=== PATIENT | female | born 1955 | race American Indian/Alaskan Native ===

== ENCOUNTER 2018-12-21 09:27 | Inpatient (IN) | payer OTHER ==
[2018-12-21] MEDS ORDERED: MIDAZOLAM 2 MG/2 ML INJ IV NR (10:54)
--- NOTE | 2018-12-21 10:57 | Anesthesia Day of Surgery ---
Anesthesia Day of Surgery - Day of Surgery Patient Examined: Yes Patient H&P Reviewed: Yes Patient is NPO: Yes
--- NOTE | 2018-12-21 10:57 | Anesthesia Consultation ---
Anesthesia Consult and Med Hx Date of service: 12/21/18 - Airway Anesthetic Teeth Evaluation: Good ROM Head & Neck: Adequate Mental/Hyoid Distance: Adequate Mallampati Class: Class II Intubation Access Assessment: Probably Good - Pulmonary Exam CTA: Yes (distant breath sounds) - Cardiac Exam Cardiac Exam: RRR - Pre-Operative Health Status ASA Pre-Surgery Classification: ASA3 Proposed Anesthetic Plan: General - Pulmonary Hx Smoking: Yes (quit 6 months ago) COPD: Yes (used albuterol neb this morning) Home Oxygen Therapy: No Hx Sleep Apnea: No (JAZZMINE PRE SCREEN LOW RISK.) - Cardiovascular System Hx Hypertension: No Hx Heart Attack/AMI: No Hx Percutaneous Transluminal Coronary Angioplasty (PTCA): No - Central Nervous System Hx Seizures: No CVA: No Hx Back Pain: Yes (FROM STONE) Hx Psychiatric Problems: Yes (anxiety and depression) - Gastrointestinal Hx Gastroesophageal Reflux Disease: No - Endocrine Hx Renal Disease: No Hx Liver Disease: No Hx Non-Insulin Dependent Diabetes: Yes Hx Thyroid Disease: No - Other Systems Hx Obesity: No - Additional Comments Anesthesia Medical History Comments: No hx anesthetic complications.
[2018-12-21] MEDS ORDERED: fentaNYL 100 MCG/2 ML INJ IV PRN (10:58)
[2018-12-21] MEDS ORDERED: ceFAZolin/STERILE WATER 2 GM/20 ML SYRINGE IV NR (11:00)
[2018-12-21] MEDS: LACTATED RINGERS 1,000 ML IV SCH (11:14)
[2018-12-21] MEDS ORDERED: PROPOFOL 200 MG/20 ML VIAL IV ONE (11:39)
[2018-12-21] MEDS ORDERED: fentaNYL 100 MCG/2 ML INJ ONE (11:39)
[2018-12-21] MEDS ORDERED: WATER FOR IRRIG STERILE 2000 ML IR ONE (12:11)
[2018-12-21] MEDS ORDERED: IOHEXOL 300 MG/ML 50ML IV ONE (12:15)
--- NOTE | 2018-12-21 12:40 | Post Operative Note ---
Date of procedure: 12/21/18 Pre-op diagnosis: r ureteral stone Post-op diagnosis: same Findings: large stone Procedure: cysto ureteroscopy laser Anesthesia: ERON Surgeon: VLAD QURESHI Estimated blood loss: none Pathology: none Condition: stable Disposition: PACU
--- NOTE | 2018-12-21 12:41 | Discharge Summary ---
Short Stay Discharge Plan Activity: other (no straining ) Weight Bearing Status: Full Weight Bearing Diet: low salt Special Instructions: other (inc fluids ) Follow up with: SONIA LUNA,PRACTICE [Other] - 7 Days VLAD QURESHI MD [Staff Physician] - 7 Days
[2018-12-21] MEDS ORDERED: LIDOCAINE MPF (2%) 20 MG/1 ML VIAL 5 ML ONE (12:57)
[2018-12-21] MEDS ORDERED: PHENYLEPHRINE/NS 1,000 MCG/10 ML SYRINGE (OR USE) IV ONE (13:00)
[2018-12-21] MEDS ORDERED: dexAMETHasone 20 MG/5 ML VIAL ONE (13:00)
[2018-12-21] MEDS ORDERED: ONDANSETRON 4 MG/2 ML INJ ONE (13:00)
--- NOTE | 2018-12-21 13:12 | Operative Report ---
PREOPERATIVE DIAGNOSIS: Large right distal ureteral stone. POSTOPERATIVE DIAGNOSIS: Large right distal ureteral stone. PROCEDURE: Cystoscopy, right retrograde, right ureteral balloon dilatation, ureteroscopy, laser of large stone, J stent. SURGEON: Juno Rubalcava MD ANESTHESIA: General. FINDINGS: This is a woman with a large ureteral stone and hydronephrosis. She now presents for treatment. DESCRIPTION OF PROCEDURE: The patient was brought to the operating room and placed on the operating table. Following induction of anesthesia, she was placed in lithotomy position, prepped and draped in usual sterile fashion. Cystourethroscopy showed no bladder lesions. Retrograde showed hydronephrosis, right side with a distal stone. A wire coiled in the kidney. Balloon dilatation was carried out. A large stone was seen and lasered into at least 15 pieces. Most of it washed out. The patient tolerated the procedure well. A 7-Telugu double-J coiled in the kidney and bladder that will be removed in 7-10 days. She tolerated the procedure well and brought to recovery in stable condition. JOB# [id number] KENIA/ABIMAEL
[2018-12-21] MEDS ORDERED: ALBUTEROL 2.5 MG/3 ML NEBU IH ONE ×2 (13:30)
--- NOTE | 2018-12-21 14:36 | Fluoroscopy Report ---
Single fluoroscopic image submitted Indication: Intraoperative localization Impression: A single image of the abdomen was submitted for documentation purposes with radiology in volvement. Fluoroscopy provided for reported right-sided ureteral balloon dilatation. A total of 24 mL of Omnipaque 300 was utilized for this exam. Fluoroscopic time: 2 minutes and 4 seconds Number of fluoroscopic images: 1 Signer Name: Job Wiley MD Signed: 12/21/2018 2:31 PM Workstation Name: [id number]
--- NOTE | 2018-12-21 15:24 | Fluoroscopy Report ---
8 fluoroscopic images submitted Indication: Intraoperative localization Impression: 8 images of the abdomen were submitted for documentation purposes with radiology involve ment. Bilateral retrograde pyelography performed, with right-sided double-J ureteral stent placement . Please refer to the operative note for complete details. A total of 24 mL of Omnipaque 300 was util ized for this exam. Fluoroscopic time: 2.1 minutes Signer Name: Job Wiley MD Signed: 12/21/2018 3:19 PM Workstation Name: [id number]
--- NOTE | 2018-12-21 16:43 | History and Physical Report ---
History of Present Illness Date of examination: 12/21/18 Date of admission: 12/21/2018 Chief complaint: Respiratory distress after postop procedure Hypoxia after postop History of present illness: 63-year-old female with nicotine dependence, COPD hyperlipidemia type 2 diabetes was evaluated. For persistent hypoxia. Patient had cystoscopy uretroscopy and bilateral RPG and stone lasered on the right ureter. Patient had couple of nebulizer treatments but did not improve and continued to be hypoxic. Patient continues to smoke a pack a day. No fever or chills. Wheezing present. No recent travel. Past History Past Medical History: COPD, diabetes, hyperlipidemia, other (depression and generalized anxiety disorder) Past Surgical History: Other (cystouretroscopy and stone removal) Medications and Allergies Allergies Allergy/AdvReac Type Severity Reaction Status Date / Time No Known Allergies Allergy Unverified 12/13/18 09:24 Home Medications Medication Instructions Recorded Confirmed Last Taken Type ALBUTEROL NEB's [Proventil] 2.5 mg IH TID PRN 12/20/18 12/20/18 12/21/18 07:30 History Albuterol Sulfate [Proventil Hfa] 2 puff IH PRN PRN 12/20/18 12/20/18 12/21/18 07:30 History Citalopram [celeXA] 20 mg PO QDAY 12/20/18 12/20/18 12/21/18 07:30 History Fluticasone/Salmeterol [Advair 1 puff IH DAILY 12/20/18 12/20/18 12/21/18 07:30 History Diskus 250-50 mcg] Magnesium 500 mg PO DAILY 12/20/18 12/20/18 12/21/18 07:30 History Metformin HCl [metFORMIN] 1,000 mg PO BID 12/20/18 12/20/18 12/20/18 History Multivit-Min/FA/Lycopen/Lutein 1 each PO DAILY 12/20/18 12/20/18 12/21/18 07:30 History [Centrum Silver Tablet] Simvastatin 20 mg PO DAILY 12/20/18 12/20/18 12/21/18 07:30 History clonazePAM [ Klonopin] 0.5 mg PO QHS 12/20/18 12/20/18 12/20/18 History Active Meds: Active Medications Fentanyl (Sublimaze) 50 mcg IV Q5MIN PRN PRN Reason: Pain , Severe (7-10) Stop: 12/21/18 20:00 Lactated Ringer's (Lactated Ringers) 1,000 mls @ 100 mls/hr IV DIRECT [facility] Last Admin: 12/21/18 11:14 Dose: 100 mls/hr Documented by: Review of Systems All systems: negative Constitutional: no weight loss, no weight gain, no fever, no chills Ears, nose, mouth and throat: no ear pain, no ear discharge Cardiovascular: shortness of breath, dyspnea on exertion, no chest pain, no orthopnea, no palpitations, no rapid/irregular heart beat, no edema, no syncope Respiratory: cough, shortness of breath, dyspnea on exertion, wheezing Gastrointestinal: no abdominal pain, no nausea, no vomiting, no diarrhea, no constipation Menstruation: ammenorrhea Rectal: no pain Musculoskeletal: no neck stiffness, no neck pain, no shooting arm pain, no arm numbness/tingling Integumentary: no rash, no pruritis, no redness, no sores Neurological: no head injury, no transient paralysis, no paralysis, no weakness, no parathesias, no numbness Psychiatric: no anxiety, no memory loss, no change in sleep habits Endocrine: no cold intolerance, no heat intolerance, no polyphagia, no excessive thirst Hematologic/Lymphatic: no easy bruising, no easy bleeding Allergic/Immunologic: no urticaria, no allergic rhinitis, no wheezing Exam - Constitutional Vitals: Temp Pulse Resp BP Pulse Ox 97.6 F 91 H 16 105/51 87 12/21/18 15:55 12/21/18 16:25 12/21/18 16:25 12/21/18 16:25 12/21/18 16:25 General appearance: Present: mild distress, well-nourished - EENT Eyes: Present: PERRL ENT: hearing intact, clear oral mucosa - Neck Neck: Present: supple, normal ROM - Respiratory Respiratory effort: normal Respiratory: bilateral: diminished, rhonchi, wheezing - Cardiovascular Heart rate: 88 Rhythm: regular Heart Sounds: Present: S1 & S2. Absent: rub, click - Extremities Extremities: no ischemia, pulses intact, pulses symmetrical, No edema Peripheral Pulses: within normal limits - Abdominal General gastrointestinal: Present: soft, non-tender, non-distended, normal bowel sounds Female genitourinary: Present: normal - Rectal Rectal Exam: deferred - Integumentary Integumentary: Present: clear, warm, dry - Musculoskeletal Musculoskeletal: gait normal, strength equal bilaterally - Psychiatric Psychiatric: appropriate mood/affect, intact judgment & insight - Neurologic Neurologic: CNII-XII intact, moves all extremities - Allied Health Allied health notes reviewed: nursing, case management Results - Labs Labs: Laboratory Last Values POC ABG pH 7.287 (7.35-7.45) L 12/21/18 15:34 POC ABG pO2 109 (80-105) H 12/21/18 15:34 POC ABG HCO3 34.6 (22-26 mml/L) 12/21/18 15:34 POC ABG Total CO2 37 (23-27mmol/L) 12/21/18 15:34 POC ABG O2 Sat 97 12/21/18 15:34 POC ABG Base Excess 8 ((-2) - (+3)mmol/L) 12/21/18 15:34 32 % 12/21/18 15:34 POC Glucose 170 (70-105) H 12/21/18 15:30 Assessment and Plan Advance Directives: Yes (full code) VTE prophylaxis?: Chemical Plan of care discussed with patient/family: Yes - Patient Problems (1) Acute respiratory failure with hypoxia and hypercarbia Current Visit: Yes Status: Acute Plan to address problem: Patient is a pCO2 of 72 and hypoxia Patient initiated on IV Solu-Medrol and IV Levaquin and nebulizer treatments [id number] and when necessary BiPAP when necessary Intubation if necessary (2) Status post cystoscopy with ureteral stent placement Current Visit: Yes Status: Acute Plan to address problem: Urology consultation (3) COPD exacerbation Current Visit: Yes Status: Acute Plan to address problem: Postop precipitating COPD exacerbation (4) T2DM (type 2 diabetes mellitus) Current Visit: Yes Status: Chronic Qualifiers: Diabetes mellitus halfway insulin use: without halfway use Plan to address problem: We will hold her metformin Accu-Cheks before meals and at bedtime Moderate dose sliding scale coverage with Humalog (5) Hyperlipidemia Current Visit: Yes Status: Chronic Qualifiers: Hyperlipidemia type: mixed hyperlipidemia Qualified Code(s): E78.2 - Mixed hyperlipidemia Plan to address problem: Continue statins (6) Depression Current Visit: Yes Status: Chronic Qualifiers: Depression Type: unspecified Qualified Code(s): F32.9 - Major depressive disorder, single episode, unspecified Plan to address problem: Continue citalopram (7) Nicotine dependence Current Visit: Yes Status: Chronic Qualifiers: Nicotine product type: cigarettes Plan to address problem: Smoking cessation consult Initiated on NicoDerm patch (8) DVT prophylaxis Current Visit: Yes Status: Acute Plan to address problem: On SCDs and GI prophylaxis
[2018-12-21] MEDS ORDERED: ONDANSETRON 4 MG/2 ML INJ IV PRN (16:44)
[2018-12-21] MEDS ORDERED: ACETAMINOPHEN 325 MG TAB PO PRN (16:44)
[2018-12-21] MEDS ORDERED: oxyCODONE /ACETAMINOPHEN 5-325MG TAB PO PRN (16:45)
[2018-12-21] MEDS ORDERED: METOCLOPRAMIDE 10 MG/2 ML INJ IV PRN (16:45)
[2018-12-21] MEDS ORDERED: ALBUTEROL 2.5 MG/3 ML NEBU IH PRN (16:47)
[2018-12-21] MEDS ORDERED: MAGNESIUM 500 MG PO SCH (17:00)
[2018-12-21] MEDS ORDERED: CITALOPRAM 20 MG TAB PO SCH (17:00)
[2018-12-21] MEDS ORDERED: NON-FORMULARY EACH (Fluticasone/Salmeterol [Advair Diskus 250-50 Mcg] 1 PUFF) IH SCH (17:00)
[2018-12-21] MEDS ORDERED: SODIUM CHLORIDE 0.9% 1000 ML 1,000 ML IV SCH (17:00)
[2018-12-21] MEDS: methylPREDNISolone Sod Succinate 125 MG/2 ML INJ IV SCH ×2 (17:14→22:17)
[2018-12-21 17:30] LABS: Hematocrit 34.9 % (30.3-42.9); Hemoglobin 10.6 gm/dl (10.1-14.3); Mean Corpuscular HGB Conc 31 % (30-34); Mean Corpuscular Volume 76 fl (79-97); Platelet Count 287 K/mm3 (140-440); Red Cell Distribution Width 16.3 % (13.2-15.2)
--- NOTE | 2018-12-21 17:46 | Post Anesthesia Evaluation ---
- Post Anesthesia Evaluation Patient Participated: Yes Airway Patent: Yes Stable Respiratory Function: Yes (Patient has COPD , Sat 88-94% will monitor overnight inpt) Nausea/Vomiting: No Temp > 96.8F: Yes Pain Manageable: Yes Adequeate Hydration: Yes Anesthesia Complications: No Block Receding Appropriately: Not Applicable Patient on Ventilator: No
[2018-12-21 17:57] LABS: Alanine Aminotransferase 19 units/L (7-56); Albumin 4.1 g/dL (3.9-5); BUN/Creatinine Ratio 22; Blood Urea Nitrogen 13 mg/dL (7-17); Calcium 9.1 mg/dL (8.4-10.2); Hemolysis Index 0
[2018-12-21 18:24] LABS: Basophils % (Manual) 0 % (0.0-1.8); Eosinophils % (Manual) 0 % (0.0-4.3); Hypochromasia 1+; Total Cells Counted 100
[2018-12-21] MEDS: BUDESONIDE 0.5 MG/2 ML NEBU IH SCH (20:02)
[2018-12-21] MEDS: ARFORMOTEROL 15 MCG/2 ML NEBU IH SCH (20:02)
[2018-12-21] MEDS: IPRATROPIUM/ALBUTEROL SULFATE 3 ML AMPUL.NEB IH SCH (20:03)
[2018-12-21] MEDS: FAMOTIDINE 20 MG TAB PO SCH (21:23)
[2018-12-21] MEDS: HEPARIN 5,000 UNIT/1 ML VIAL SUB-Q SCH (21:24)
[2018-12-21] MEDS ORDERED: clonazePAM 0.5 MG TAB PO SCH (22:00)
--- NOTE | 2018-12-21 22:03 | Event Note ---
Date: 12/21/18 Discussed with [employer] earlier ABG with uncompensated respiratory acidosis but patient hemodynamically stable and with encephalopathy / delirium - BIPAP qhs - will see in am
[2018-12-21] MEDS: HYDROmorphone 1 MG/1 ML INJ IV PRN (23:59)
[2018-12-22] MEDS: methylPREDNISolone Sod Succinate 125 MG/2 ML INJ IV SCH ×2 (05:26→13:24)
[2018-12-22 06:32] LABS: Hematocrit 33.7 % (30.3-42.9); Hemoglobin 10.3 gm/dl (10.1-14.3); Mean Corpuscular HGB Conc 31 % (30-34); Mean Corpuscular Volume 77 fl (79-97); Platelet Count 283 K/mm3 (140-440); Red Blood Count 4.38 M/mm3 (3.65-5.03); Red Cell Distribution Width 16.3 % (13.2-15.2)
[2018-12-22 06:45] LABS: BUN/Creatinine Ratio 35; Blood Urea Nitrogen 14 mg/dL (7-17); Calcium 8.7 mg/dL (8.4-10.2); Hemolysis Index 2
[2018-12-22] MEDS: IPRATROPIUM/ALBUTEROL SULFATE 3 ML AMPUL.NEB IH SCH ×2 (08:31→13:03)
[2018-12-22] MEDS: ARFORMOTEROL 15 MCG/2 ML NEBU IH SCH (08:31)
[2018-12-22] MEDS: BUDESONIDE 0.5 MG/2 ML NEBU IH SCH (08:32)
[2018-12-22] MEDS: HYDROmorphone 1 MG/1 ML INJ IV PRN ×2 (08:58→13:28)
[2018-12-22] MEDS: INSULIN LISPRO 100 UNIT/ML SUB-Q SCH ×3 (08:58→16:46)
[2018-12-22] MEDS: FAMOTIDINE 20 MG TAB PO SCH (08:59)
[2018-12-22] MEDS: HEPARIN 5,000 UNIT/1 ML VIAL SUB-Q SCH (08:59)
[2018-12-22 10:50] LABS: Basophils % (Manual) 0 % (0.0-1.8); Eosinophils % (Manual) 0 % (0.0-4.3); Total Cells Counted 100
[2018-12-22 10:57] LABS: Hypochromasia 2+
[2018-12-22 11:01] LABS: Anisocytosis Few
[2018-12-22 11:02] LABS: Ovalocytes Rare; Platelet Estimate Consistent w Auto
[2018-12-22] MEDS ORDERED: PNEUMOCOCCAL 23 Valent 0.5 ML VIAL IM ONE (12:00)
--- NOTE | 2018-12-22 12:01 | Consultation ---
History of Present Illness Consult date: 12/22/18 Requesting physician: VLAD QURESHI Reason for consult: COPD History of present illness: PULMONARY/CCM CONSULT NOTE (Full dictation # [id number]) Please see dictated notes for full details Past History Past Medical History: COPD, diabetes, hyperlipidemia, other (depression and generalized anxiety disorder) Past Surgical History: Other (cystouretroscopy and stone removal) Medications and Allergies Allergies Allergy/AdvReac Type Severity Reaction Status Date / Time No Known Allergies Allergy Unverified 12/13/18 09:24 Home Medications Medication Instructions Recorded Confirmed Last Taken Type ALBUTEROL NEB's [Proventil] 2.5 mg IH TID PRN 12/20/18 12/20/18 12/21/18 07:30 History Albuterol Sulfate [Proventil Hfa] 2 puff IH PRN PRN 12/20/18 12/20/18 12/21/18 07:30 History Citalopram [celeXA] 20 mg PO QDAY 12/20/18 12/20/18 12/21/18 07:30 History Fluticasone/Salmeterol [Advair 1 puff IH DAILY 12/20/18 12/20/18 12/21/18 07:30 History Diskus 250-50 mcg] Magnesium 500 mg PO DAILY 12/20/18 12/20/18 12/21/18 07:30 History Metformin HCl [metFORMIN] 1,000 mg PO BID 12/20/18 12/20/18 12/20/18 History Multivit-Min/FA/Lycopen/Lutein 1 each PO DAILY 12/20/18 12/20/18 12/21/18 07:30 History [Centrum Silver Tablet] Simvastatin 20 mg PO DAILY 12/20/18 12/20/18 12/21/18 07:30 History clonazePAM [ Klonopin] 0.5 mg PO QHS 12/20/18 12/20/18 12/20/18 History Active Meds: Active Medications Acetaminophen (Tylenol) 650 mg PO Q4H PRN PRN Reason: Pain MILD(1-3)/Fever >100.5/JIANG Last Admin: 12/22/18 05:26 Dose: 650 mg Documented by: Albuterol (Proventil) 2.5 mg IH Q4HRT PRN PRN Reason: Shortness Of Breath Albuterol/Ipratropium (Duoneb *Not For Prn Use*) 1 ampul IH QIDRT [facility] Last Admin: 12/22/18 08:31 Dose: 1 ampul Documented by: Arformoterol Tartrate (Brovana Nebu) 15 mcg IH Q12HRT [facility] Last Admin: 12/22/18 08:31 Dose: 15 mcg Documented by: Budesonide (Pulmicort) 0.5 mg IH Q12HRT [facility] Last Admin: 12/22/18 08:32 Dose: 0.5 mg Documented by: Citalopram Hydrobromide (Celexa) 20 mg PO QDAY [facility] Last Admin: 12/22/18 08:59 Dose: 20 mg Documented by: Clonazepam (Klonopin) 0.5 mg PO QHS [facility] Last Admin: 12/21/18 21:24 Dose: 0.5 mg Documented by: Famotidine (Pepcid) 20 mg PO BID [facility] Last Admin: 12/22/18 08:59 Dose: 20 mg Documented by: Heparin Sodium (Porcine) (Heparin) 5,000 unit SUB-Q Q12HR [facility] Last Admin: 12/22/18 08:59 Dose: 5,000 unit Documented by: Hydromorphone HCl (Dilaudid) 0.5 mg IV Q3H PRN PRN Reason: Pain , Severe (7-10) Last Admin: 12/22/18 08:58 Dose: 0.5 mg Documented by: Lactated Ringer's (Lactated Ringers) 1,000 mls @ 100 mls/hr IV DIRECT [facility] Last Admin: 12/21/18 11:14 Dose: 100 mls/hr Documented by: Levofloxacin/Dextrose (Levaquin 750mg/150ml) 750 mg in 150 mls @ 100 mls/hr IV Q24HR [facility]; Protocol Last Admin: 12/22/18 08:59 Dose: 100 mls/hr Documented by: Insulin Human Lispro (Humalog) 0 unit SUB-Q ACHS [facility]; Protocol Last Admin: 12/22/18 08:58 Dose: 3 unit Documented by: Methylprednisolone Sodium Succinate (Solu-Medrol) 60 mg IV Q8HR [facility] Last Admin: 12/22/18 05:26 Dose: 60 mg Documented by: Metoclopramide HCl (Reglan) 10 mg IV Q6H PRN PRN Reason: Nausea And Vomiting Miscellaneous Medication (Magnesium [Magnesium]) 500 mg PO DAILY [facility] Ondansetron HCl (Zofran) 4 mg IV Q8H PRN PRN Reason: Nausea And Vomiting Oxycodone/Acetaminophen (Percocet 5/325) 1 tab PO Q6H PRN PRN Reason: Pain, Moderate (4-6) Pneumococcal Polyvalent Vaccine (Pneumovax 23) 0.5 ml IM .ONCE ONE Stop: 12/22/18 12:01 Sodium Chloride (Sodium Chloride Flush Syringe 10 Ml) 10 ml IV BID [facility] Last Admin: 12/22/18 09:00 Dose: 10 ml Documented by: Sodium Chloride (Sodium Chloride Flush Syringe 10 Ml) 10 ml IV PRN PRN PRN Reason: LINE FLUSH Physical Examination Vital signs: Vital Signs Temp Pulse Resp BP Pulse Ox 98.5 F 94 H 22 119/64 95 12/21/18 09:50 12/21/18 09:50 12/21/18 09:50 12/21/18 09:50 12/21/18 09:50 Results - Laboratory Findings CBC and BMP: 12/22/18 05:15 12/22/18 05:15 ABG POC ABG pH 7.287 (7.35-7.45) L 12/21/18 15:34 POC ABG pO2 109 (80-105) H 12/21/18 15:34 POC ABG HCO3 34.6 (22-26 mml/L) 12/21/18 15:34 POC ABG Total CO2 37 (23-27mmol/L) 12/21/18 15:34 POC ABG O2 Sat 97 12/21/18 15:34 Abnormal lab findings: Abnormal Labs 12/21/18 12/21/18 12/21/18 10:24 13:15 15:30 MCV MCH RDW Seg Neuts % (Manual) Lymphocytes % (Manual) Lymphocytes # (Manual) POC ABG pH POC ABG pO2 Sodium Chloride Carbon Dioxide Creatinine Glucose POC Glucose 170 H 137 H 170 H Hemoglobin A1c 12/21/18 12/21/18 12/21/18 15:34 17:19 17:19 MCV 76 L MCH 23 L RDW 16.3 H Seg Neuts % (Manual) 93.0 H Lymphocytes % (Manual) 6.0 L Lymphocytes # (Manual) 0.4 L POC ABG pH 7.287 L POC ABG pO2 109 H Sodium 136 L Chloride 95.9 L Carbon Dioxide 33 H Creatinine 0.6 L Glucose 253 H POC Glucose Hemoglobin A1c 12/21/18 12/21/18 12/22/18 17:19 21:18 05:15 MCV 77 L MCH 24 L RDW 16.3 H Seg Neuts % (Manual) 92.0 H Lymphocytes % (Manual) 7.0 L Lymphocytes # (Manual) 0.5 L POC ABG pH POC ABG pO2 Sodium Chloride Carbon Dioxide Creatinine Glucose POC Glucose 272 H Hemoglobin A1c 7.0 H 12/22/18 12/22/18 12/22/18 05:15 07:22 11:18 MCV MCH RDW Seg Neuts % (Manual) Lymphocytes % (Manual) Lymphocytes # (Manual) POC ABG pH POC ABG pO2 Sodium Chloride Carbon Dioxide 32 H Creatinine 0.4 L Glucose 201 H POC Glucose 227 H 276 H Hemoglobin A1c
--- NOTE | 2018-12-22 12:40 | XRay Report ---
CHEST 1 VIEW INDICATION: acute hypoxemia; COPD. COMPARISON: None. FINDINGS: Support devices: None. Heart: Within normal limits. Pulmonary vasculature: Normal. Lungs/Pleura: Moderate emphysema. Bilateral apical scarring with superior retraction of the ba. Additional findings: None. IMPRESSION: 1. No CHF or pneumonia. Signer Name: Hao Huston MD Signed: 12/22/2018 12:35 PM Workstation Name: [id number]
[2018-12-22] MEDS: LACTATED RINGERS 1,000 ML IV SCH (13:28)
--- NOTE | 2018-12-22 14:20 | Progress Note ---
Assessment and Plan (1) Acute respiratory failure with hypoxia and hypercarbia Current Visit: Yes Status: Acute Plan to address problem: Patient is a pCO2 of 72 and hypoxia Patient initiated on IV Solu-Medrol and IV Levaquin and nebulizer treatments [id number] and when necessary BiPAP when necessary Intubation if necessary (2) Status post cystoscopy with ureteral stent placement Current Visit: Yes Status: Acute Plan to address problem: Urology consultation (3) COPD exacerbation Current Visit: Yes Status: Acute Plan to address problem: Postop precipitating COPD exacerbation (4) T2DM (type 2 diabetes mellitus) Current Visit: Yes Status: Chronic Qualifiers: Diabetes mellitus salvage determiner insulin use: without senior care use Plan to address problem: We will hold her metformin Accu-Cheks before meals and at bedtime Moderate dose sliding scale coverage with Humalog (5) Hyperlipidemia Current Visit: Yes Status: Chronic Qualifiers: Hyperlipidemia type: mixed hyperlipidemia Qualified Code(s): E78.2 - Mixed hyperlipidemia Plan to address problem: Continue statins (6) Depression Current Visit: Yes Status: Chronic Qualifiers: Depression Type: unspecified Qualified Code(s): F32.9 - Major depressive disorder, single episode, unspecified Plan to address problem: Continue citalopram (7) Nicotine dependence Current Visit: Yes Status: Chronic Qualifiers: Nicotine product type: cigarettes Plan to address problem: Smoking cessation consult Initiated on NicoDerm patch (8) DVT prophylaxis Current Visit: Yes Status: Acute Plan to address problem: On SCDs and GI prophylaxis Subjective Date of service: 12/22/18 Objective - Constitutional Vitals: Vital Signs - 12hr 12/22/18 12/22/18 12/22/18 03:53 04:52 07:02 Temperature 97.6 F 97.9 F Pulse Rate 78 90 77 Pulse Rate [ Anterior Bilateral Throughout] Pulse Rate [ Anterior Bilateral Upper Lobe] Respiratory 22 20 22 Rate Respiratory Rate [Anterior Bilateral Throughout] Respiratory Rate [Anterior Bilateral Upper Lobe] Blood Pressure 100/31 97/40 Blood Pressure 141/86 [Right] O2 Sat by Pulse 99 98 98 Oximetry 12/22/18 12/22/18 12/22/18 08:21 08:30 08:50 Temperature 97.7 F Pulse Rate 88 Pulse Rate [ 86 Anterior Bilateral Throughout] Pulse Rate [ 90 Anterior Bilateral Upper Lobe] Respiratory 20 Rate Respiratory 20 Rate [Anterior Bilateral Throughout] Respiratory 20 Rate [Anterior Bilateral Upper Lobe] Blood Pressure 116/40 Blood Pressure [Right] O2 Sat by Pulse 85 94 Oximetry 12/22/18 11:36 Temperature 98.1 F Pulse Rate 82 Pulse Rate [ Anterior Bilateral Throughout] Pulse Rate [ Anterior Bilateral Upper Lobe] Respiratory 20 Rate Respiratory Rate [Anterior Bilateral Throughout] Respiratory Rate [Anterior Bilateral Upper Lobe] Blood Pressure Blood Pressure 101/81 [Right] O2 Sat by Pulse 96 Oximetry - Labs CBC & Chem 7: 12/22/18 05:15 12/22/18 05:15 Labs: Abnormal lab results 12/21/18 12/21/18 12/21/18 Range/Units 15:30 15:34 17:19 MCV 76 L (79-97) fl MCH 23 L (28-32) pg RDW 16.3 H (13.2-15.2) % Seg Neuts % (Manual) 93.0 H (40.0-70.0) % Lymphocytes % (Manual) 6.0 L (13.4-35.0) % Lymphocytes # (Manual) 0.4 L (1.2-5.4) K/mm3 POC ABG pH 7.287 L (7.35-7.45) POC ABG pCO2 (35-45) POC ABG pO2 109 H (80-105) Sodium (137-145) mmol/L Chloride (98-107) mmol/L Carbon Dioxide (22-30) mmol/L Creatinine (0.7-1.2) mg/dL Glucose (65-100) mg/dL POC Glucose 170 H (70-105) Hemoglobin A1c (4-6) % Lactic Acid (0.7-2.0) mmol/L 12/21/18 12/21/18 12/21/18 Range/Units 17:19 17:19 21:18 MCV (79-97) fl MCH (28-32) pg RDW (13.2-15.2) % Seg Neuts % (Manual) (40.0-70.0) % Lymphocytes % (Manual) (13.4-35.0) % Lymphocytes # (Manual) (1.2-5.4) K/mm3 POC ABG pH (7.35-7.45) POC ABG pCO2 (35-45) POC ABG pO2 (80-105) Sodium 136 L (137-145) mmol/L Chloride 95.9 L (98-107) mmol/L Carbon Dioxide 33 H (22-30) mmol/L Creatinine 0.6 L (0.7-1.2) mg/dL Glucose 253 H (65-100) mg/dL POC Glucose 272 H (70-105) Hemoglobin A1c 7.0 H (4-6) % Lactic Acid (0.7-2.0) mmol/L 12/22/18 12/22/18 12/22/18 Range/Units 05:15 05:15 07:22 MCV 77 L (79-97) fl MCH 24 L (28-32) pg RDW 16.3 H (13.2-15.2) % Seg Neuts % (Manual) 92.0 H (40.0-70.0) % Lymphocytes % (Manual) 7.0 L (13.4-35.0) % Lymphocytes # (Manual) 0.5 L (1.2-5.4) K/mm3 POC ABG pH (7.35-7.45) POC ABG pCO2 (35-45) POC ABG pO2 (80-105) Sodium (137-145) mmol/L Chloride (98-107) mmol/L Carbon Dioxide 32 H (22-30) mmol/L Creatinine 0.4 L (0.7-1.2) mg/dL Glucose 201 H (65-100) mg/dL POC Glucose 227 H (70-105) Hemoglobin A1c (4-6) % Lactic Acid (0.7-2.0) mmol/L 12/22/18 12/22/18 12/22/18 Range/Units 11:18 12:24 13:07 MCV (79-97) fl MCH (28-32) pg RDW (13.2-15.2) % Seg Neuts % (Manual) (40.0-70.0) % Lymphocytes % (Manual) (13.4-35.0) % Lymphocytes # (Manual) (1.2-5.4) K/mm3 POC ABG pH (7.35-7.45) POC ABG pCO2 55.1 H (35-45) POC ABG pO2 57 L (80-105) Sodium (137-145) mmol/L Chloride (98-107) mmol/L Carbon Dioxide (22-30) mmol/L Creatinine (0.7-1.2) mg/dL Glucose (65-100) mg/dL POC Glucose 276 H (70-105) Hemoglobin A1c (4-6) % Lactic Acid 3.20 H* (0.7-2.0) mmol/L
[2018-12-22] MEDS ORDERED: SODIUM CHLORIDE 0.9% 1000 ML 1,000 ML IV SCH (15:30)
[2018-12-22 16:05] VITALS: BP 102/52
--- NOTE | 2018-12-22 20:18 | Consultation ---
PULMONARY CRITICAL CARE CONSULT NOTE CONSULTING PHYSICIAN: Dr. Juno Rubalcava. REASON FOR CONSULTATION: COPD. CHIEF COMPLAINT AND HISTORY OF PRESENT ILLNESS: The patient is a 63-year-old female with past medical history significant amongst other things for a diagnosis of COPD, but more recently attacks of nephrolithiasis. She was admitted to the hospital for a cystoscopy with ureteroscopy and bilateral RPG and stone lasered on the right ureter. She apparently perioperatively desaturated. She was given nebulizer treatments without significant improvement. She was wheezing. She does have a 10+ pack year tobacco smoking history, but tells me she quit a few months ago. We were asked to assist with management. When I stopped by to see her, she was resting in bed, remained on supplemental oxygen at 2 liters nasal cannula. She said her breathing was easy. She denied being on home oxygen therapy. 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 She denied any cough or expectoration prior to coming into the hospital. She denied any increased shortness of breath prior to coming to the hospital. She denied any new onset leg pain or swelling either unilaterally or bilaterally or any suggestion of deep venous thrombosis. She denied any excessive phlegm production. She denied any sick contacts prior to being admitted. Again, denied gross or streaky hemoptysis. This really is as much of the history of presentation as I have. I should mention that had been involved in her care yesterday perioperatively and she had been placed on bilevel positive air pressure ventilation therapy at bedtime with p.r.n. daytime use. PAST MEDICAL HISTORY: Again, significant for COPD, diabetes, hyperlipidemia, history of depression, history of generalized anxiety disorder and history of tobacco use disorder. PAST SURGICAL HISTORY: As mentioned above. MEDICATIONS: Medications she was on when I stopped by to see her, according to the medication administration record included the following: Albuterol 2.5 mg nebulized q. 4 hours p.r.n. shortness of breath, DuoNeb nebulizer treatments nebulized q.i.d., Brovana 15 mcg nebulized q. 12 hours, Pulmicort 0.5 mg nebulized q. 12 hours, Celexa 20 mg p.o. daily, Klonopin 0.5 mg p.o. at bedtime, Pepcid 20 mg p.o. b.i.d., heparin 5000 units subcutaneous q. 12 hours, Dilaudid 0.5 mg IV q. 3 hours p.r.n. severe pain, insulin via sliding scale, Levaquin 750 mg IV daily, Solu-Medrol 60 mg IV q. 8 hours, Reglan 10 mg IV q. 6 hours p.r.n. nausea and vomiting, nonformulary medication at 500 mg p.o. daily, Zofran 4 mg IV q. 8 hours p.r.n. nausea and vomiting, Percocet 5/325 mg 1 tablet p.o. q. 6 hours p.r.n. moderate pain. ALLERGIES: No known drug allergies. DIET: Well-built lady. Denies acute weight loss or gain in the preceding few weeks to months. FAMILY AND SOCIAL HISTORY: Lives in the community. She has a 10+ pack year tobacco smoking history. Denies alcohol or illicit drug use or abuse. FAMILY HISTORY: Otherwise, noncontributory. REVIEW OF SYSTEMS: No loss of consciousness. No new onset seizures. No new onset focal weakness. No gross hematochezia or melena. No gross hematuria. She did have the dysuria. She denied any polydipsia or polyuria. Denied new onset seizures. She denied any history of heat or cold intolerance. She denies easy bruising. She denies any significant ear pain or ear discharge. Complete 13-system review of systems obtained. Pertinent positives and/or negatives as in body of history above, otherwise are noncontributory. PHYSICAL EXAMINATION: VITAL SIGNS: At presentation, she was afebrile, temperature 98.5 degrees Fahrenheit with a pulse of 94, respiratory rate of 22, blood pressure 119/64, O2 sats 95%, inspired oxygen at that time was not recorded. When I saw her, O2 sats were 98% that was on 2 liters nasal cannula. GENERAL: She is an elderly looking female, normocephalic, atraumatic, talking to me in uninterrupted sentences, but with mildly increased respiratory effort at rest. HEAD, EYES, EARS, NOSE AND THROAT: She was anicteric, no conjunctival erythema. Oropharynx was moist. Mallampati #2 oropharynx. No gross jugular venous distention, no thyromegaly. NECK: Grossly, there were no palpable lymph nodes in the supraclavicular or submandibular lymph node chains. LUNGS: Auscultation of both lung palafox revealed good bilateral air movement, slightly prolonged expiratory phase. No wheezing. HEART: Heart sounds 1 and 2 were heard. They were regular in rate and rhythm at time of my evaluation without overt rubs or murmurs. ABDOMEN: Soft, flat. Bowel sounds are positive, nontender, no palpable hepatosplenomegaly. Mild right CVA angle tenderness. EXTREMITIES: Without overt digital clubbing or cyanosis and no pedal edema. Pedal pulses are strong, 2+ bilaterally. NEUROLOGIC: Pupils are equal, round, about 5 mm, reactive to light. Extraocular muscle movements are intact. She moves all 4 extremities spontaneously. SKIN: Normal turgor without overt cellulitis or rash. PSYCHIATRIC: Mood was normal. Affect was appropriate. LABORATORY DATA: From my review are as follows: Admission white cell count 7100, hemoglobin 10.6, hematocrit 34.9, platelet count 287. No significant band forms on the manual differential. Arterial blood gas showed a pH of 7.29, pCO2 was reported as in the 70s, pO2 was 109 that was on 3 liters nasal cannula. Serum sodium was 136, potassium 4.8, chloride 96, bicarbonate 33, BUN was 13, creatinine was 0.6, and glucose was 253. Hemoglobin A1c was 7.0. MCV was low at 77. Today, her bicarbonate is 32. I do not have any radiographic studies for review. No blood cultures or microbiology studies for review. ASSESSMENT: 1. Acute hypoxemic respiratory failure. 2. Acute chronic obstructive pulmonary disease exacerbation. 3. Hypercapnic respiratory failure. 4. Nephrolithiasis. 5. History of diabetes. 6. Hyperlipidemia. 7. Tobacco use disorder. 8. History of anxiety. PLAN: I have initially congratulated her on tobacco abstinence and continued to stress that she needs to stay off the cigarettes. I have explained the benefits she will get from continued tobacco abstinence. In the meantime, I will get a chest x-ray. I will get a serum lactic acid level and try and ensure that there is indeed a significant metabolic component to this presentation, despite her elevated serum bicarbonate. She was significantly acidotic. She will continue long and short-acting bronchodilators. We will continue her on the IV antibiotics, but from COPD standpoint as it is, I do not really think she needs empiric antibiotics. She is appropriately on GI and DVT prophylaxis. She will need outpatient pulmonary clinic followup with pulmonary function testing. Further management per the attending physician we will also continue. Oxygen will be weaned to keep sats greater than or equal to about 90%. I will get a room air ABG on her. Flu and pneumonia vaccination will be addressed per protocol. Thank you very much for the consult Dr. Rubalcava. We will follow along and make further recommendations as picture progresses/becomes clearer. JOB# [id number] AMIRA/ABIMAEL
--- NOTE | 2018-12-23 18:10 | Discharge Summary ---
Providers - Providers Date of Admission: 12/21/18 16:44 Date of discharge: 12/22/18 Attending physician: ABIGAIL GILBERT 12/21/18 Consult to Case Management [CONS] Routine Services Needed at Discharge: Home Health Services Notified:: cm notified 12/21/18 16:45 Consult to Physician [CONS] Routine Comment: Consulting Provider: NICOLASA VARELA Physician Instructions: Reason For Exam: brennan Hospitalization Condition: Good Pertinent studies: CXR Hospital course: 63-year-old female with nicotine dependence 1 PPD, COPD hyperlipidemia type 2 diabetes was evaluated For persistent hypoxia following a procedure- cystoscopy uretroscopy and bilateral RPG and stone lasered on the right ureter. Patient had couple of nebulizer treatments but did not improve and continued to be hypoxic. She was admitted for further evaluation and Mx. Patient was initiated on IV Solu-Medrol and IV Levaquin and nebulizer treatments aroun d-the-clock and when necessary. her symptom improved significantly by next day and was discharged home in stable condition with outpt f/u. Discharge diagnosis and Mx: (1) Acute respiratory failure with hypoxia and hypercarbia Patient is a pCO2 of 72 and hypoxia following anesthesia Patient initiated on IV Solu-Medrol and IV Levaquin and nebulizer treatments [id number] and when necessary Symptom resolved by next day (2) Status post cystoscopy with ureteral stent placement Outpt Urology follow up (3) COPD exacerbation Postop precipitating COPD exacerbation with IV Solu-Medrol and IV Levaquin and nebulizer treatments [id number] and when necessary (4) T2DM (type 2 diabetes mellitus) Accu-Cheks before meals and at bedtime Moderate dose sliding scale coverage with Humalog (5) Hyperlipidemia Continue statins (6) Depression Continue citalopram (7) Nicotine dependence Smoking cessation counseled Initiated on NicoDerm patch (8) DVT prophylaxis On SCDs and GI prophylaxis Disposition: DC- TO HOME OR SELFCARE Time spent for discharge: 34 minutes Core Measure Documentation - Palliative Care Palliative Care/ Comfort Measures: Not Applicable - Core Measures Any of the following diagnoses?: none Exam - Constitutional Vitals: Temp Pulse Resp BP Pulse Ox 98 F 82 20 102/52 92 12/22/18 15:30 12/22/18 15:30 12/22/18 15:30 12/22/18 15:30 12/22/18 16:00 General appearance: Present: no acute distress, well-nourished - EENT Eyes: Present: PERRL ENT: hearing intact, clear oral mucosa - Neck Neck: Present: supple, normal ROM - Respiratory Respiratory effort: normal Respiratory: bilateral: CTA - Cardiovascular Heart Sounds: Present: S1 & S2. Absent: rub, click - Extremities Extremities: pulses symmetrical, No edema Peripheral Pulses: within normal limits - Abdominal General gastrointestinal: Present: soft, non-tender, non-distended, normal bowel sounds - Integumentary Integumentary: Present: clear, warm, dry - Musculoskeletal Musculoskeletal: gait normal, strength equal bilaterally - Psychiatric Psychiatric: appropriate mood/affect, intact judgment & insight - Neurologic Neurologic: CNII-XII intact, moves all extremities Plan Activity: advance as tolerated Weight Bearing Status: Partial Weight Bearing Diet: low fat, low salt Follow up with: SONIA LUNA,PRACTICE [Other] - 7 Days VLAD QURESHI MD [Staff Physician] - 7 Days Forms: [facility] Prescriptions: predniSONE [Deltasone] 10 mg PO .TAPER #21 tab Azithromycin [Zithromax] 250 mg PO DAILY #4 tablet
== END 2018-12-22 17:10 | disposition home or self-care (01) | DRG 659 ==
LOC: OR 09:27 → 3A 16:44 → 3B-SURG 19:12
PROVIDERS: ADMIT Internal Medicine; ATTEND Internal Medicine
PROC: 0TC68ZZ Extirpation of Matter from Right Ureter, Via Natural or Artificial Opening Endoscopic (ICD-10-PCS; principal; 2018-12-21)
PROC: 0T768DZ Dilation of Right Ureter with Intraluminal Device, Via Natural or Artificial Opening Endoscopic (ICD-10-PCS; 2018-12-21)
PROC: BT141ZZ Fluoroscopy of Kidneys, Ureters and Bladder using Low Osmolar Contrast (ICD-10-PCS; 2018-12-21)
PROC: 4A033R1 Measurement of Arterial Saturation, Peripheral, Percutaneous Approach (ICD-10-PCS; 2018-12-21)
PROC: 5A09357 Assistance with Respiratory Ventilation, Less than 24 Consecutive Hours, Continuous Positive Airway Pressure (ICD-10-PCS; 2018-12-21)
PROC: 3E0234Z Introduction of Serum, Toxoid and Vaccine into Muscle, Percutaneous Approach (ICD-10-PCS; 2018-12-22)
PROC: 5A09357 Assistance with Respiratory Ventilation, Less than 24 Consecutive Hours, Continuous Positive Airway Pressure (ICD-10-PCS; 2018-12-22)
DX: N13.2 Hydronephrosis with renal and ureteral calculous obstruction (principal); J96.22 Acute and chronic respiratory failure with hypercapnia; J96.21 Acute and chronic respiratory failure with hypoxia; J44.1 Chronic obstructive pulmonary disease with (acute) exacerbation; E87.2 Acidosis; G93.40 Encephalopathy, unspecified; E11.9 Type 2 diabetes mellitus without complications; F32.9 Major depressive disorder, single episode, unspecified; F41.9 Anxiety disorder, unspecified; F41.1 Generalized anxiety disorder; E78.2 Mixed hyperlipidemia; F17.210 Nicotine dependence, cigarettes, uncomplicated; Z71.6 Tobacco abuse counseling; Z93.59 Other cystostomy status; Z79.4 Long term (current) use of insulin; Z79.899 Other long term (current) drug therapy; Z23 Encounter for immunization
CPT/HCPCS: 36415; 36600; 71045; 74420; 80048; 80053; 82140; 82803; 82962; 83036; 85007; 85025; 86140; 90732; 94640; 94660; 94760; G0378; A4217; C1726; C1758; C1769; C2617; J0690; J1100; J1170; J1644; J1815; J1956; J2250; J2370; J2405; J2704; J2930; J3010; J7030; J7120; Q9967